=== PATIENT | male | born 1940 | race Caucasian/White ===

== ENCOUNTER → 2018-01-28 02:46 | Outpatient (CLI) | payer MEDICARE, MEDICAID, SELFPAY ==
[2018-01-28 11:33] LABS: INR 1.8 (1.0-3.5); Prothrombin Time 16.8 sec (9.3-10.8)
== END ==
PROVIDERS: PCP Emergency Medicine; Visit Provider Emergency Medicine
DX: I80.9 Phlebitis and thrombophlebitis of unspecified site (principal); Z79.01 Long term (current) use of anticoagulants
CPT/HCPCS: 36415; 85610

== ENCOUNTER → 2018-02-04 01:47 | Outpatient (CLI) | payer MEDICARE, MEDICAID, SELFPAY ==
[2018-02-04 12:01] LABS: Prothrombin Time 24.1 sec (9.3-10.8)
[2018-02-04 12:27] LABS: INR 2.5 (1.0-3.5)
== END ==
PROVIDERS: PCP Emergency Medicine; Visit Provider Emergency Medicine
DX: I80.9 Phlebitis and thrombophlebitis of unspecified site (principal); Z79.01 Long term (current) use of anticoagulants
CPT/HCPCS: 36415; 85610

== ENCOUNTER → 2018-02-11 02:24 | Outpatient (CLI) | payer MEDICARE, MEDICAID, SELFPAY ==
[2018-02-11 11:28] LABS: INR 2.7 (1.0-3.5); Prothrombin Time 25.6 sec (9.3-10.8)
== END ==
PROVIDERS: PCP Emergency Medicine; Visit Provider Emergency Medicine
DX: I80.9 Phlebitis and thrombophlebitis of unspecified site (principal); Z79.01 Long term (current) use of anticoagulants
CPT/HCPCS: 36415; 85610

== ENCOUNTER → 2018-02-18 02:50 | Outpatient (CLI) | payer MEDICARE, MEDICAID, SELFPAY ==
[2018-02-18 11:12] LABS: INR 3.4 (1.0-3.5)
== END ==
PROVIDERS: PCP Emergency Medicine; Visit Provider Emergency Medicine
DX: I80.9 Phlebitis and thrombophlebitis of unspecified site (principal); Z79.01 Long term (current) use of anticoagulants
CPT/HCPCS: 36415; 85610

== ENCOUNTER 2018-02-26 05:43 | Outpatient (CLI) | payer MEDICARE, MEDICAID, SELFPAY ==
[2018-02-26 12:13] LABS: Prothrombin Time 45.6 sec (9.3-10.8)
[2018-02-26 12:31] LABS: INR 4.9 (1.0-3.5)
== END 2018-02-26 06:03 ==
LOC: LBO 05:47 → LOS 11:23
PROVIDERS: PCP Emergency Medicine; Visit Provider Emergency Medicine
DX: I80.9 Phlebitis and thrombophlebitis of unspecified site (principal); Z79.01 Long term (current) use of anticoagulants
CPT/HCPCS: 36415; 85610

== ENCOUNTER 2018-03-01 05:23 | Outpatient (CLI) | payer MEDICARE, MEDICAID, SELFPAY ==
[2018-03-01 11:54] LABS: INR 1.9 (1.0-3.5); Prothrombin Time 18.5 sec (9.3-10.8)
== END 2018-03-01 05:43 ==
PROVIDERS: PCP Emergency Medicine; Visit Provider Emergency Medicine
DX: I80.9 Phlebitis and thrombophlebitis of unspecified site (principal); Z79.01 Long term (current) use of anticoagulants
CPT/HCPCS: 36415; 85610

== ENCOUNTER → 2018-03-06 13:03 | Outpatient (BNVA) | payer MEDICARE, MEDICAID, SELFPAY | PROVIDERS: PCP Emergency Medicine; Visit Provider Student in an Organized Health Care Education/Training Program | DX: I35.0 Nonrheumatic aortic (valve) stenosis (principal); Z95.3 Presence of xenogenic heart valve; I25.10 Atherosclerotic heart disease of native coronary artery without angina pectoris; I48.2 Chronic atrial fibrillation; I11.0 Hypertensive heart disease with heart failure; J44.9 Chronic obstructive pulmonary disease, unspecified; I50.22 Chronic systolic (congestive) heart failure | CPT/HCPCS: 99214 ==

== ENCOUNTER 2018-03-15 01:02 | Outpatient (CLI) | payer MEDICARE, MEDICAID, SELFPAY ==
[2018-03-15 11:42] LABS: INR 2.5 (1.0-3.5); Prothrombin Time 23.5 sec (9.3-10.8)
== END 2018-03-15 01:22 ==
PROVIDERS: PCP Emergency Medicine; Visit Provider Emergency Medicine
DX: I80.9 Phlebitis and thrombophlebitis of unspecified site (principal); Z79.01 Long term (current) use of anticoagulants
CPT/HCPCS: 36415; 85610

== ENCOUNTER 2018-03-29 02:49 | Outpatient (CLI) | payer MEDICARE, MEDICAID, SELFPAY ==
[2018-03-29 11:28] LABS: INR 2.8 (1.0-3.5); Prothrombin Time 26.3 sec (9.3-10.8)
== END 2018-03-29 03:09 ==
PROVIDERS: PCP Emergency Medicine; Visit Provider Emergency Medicine
DX: I80.9 Phlebitis and thrombophlebitis of unspecified site (principal); Z79.01 Long term (current) use of anticoagulants
CPT/HCPCS: 36415; 85610

== ENCOUNTER 2018-04-29 01:49 | Outpatient (CLI) | payer MEDICARE, MEDICAID, SELFPAY ==
[2018-04-29 11:16] LABS: INR 1.7 (1.0-3.5); Prothrombin Time 16.1 sec (9.3-10.8)
== END 2018-04-29 02:09 ==
PROVIDERS: PCP Emergency Medicine; Visit Provider Emergency Medicine
DX: I80.9 Phlebitis and thrombophlebitis of unspecified site (principal); Z79.01 Long term (current) use of anticoagulants
CPT/HCPCS: 36415; 85610

== ENCOUNTER 2018-05-06 01:34 | Outpatient (CLI) | payer MEDICARE, MEDICAID, SELFPAY ==
[2018-05-06 11:38] LABS: INR 1.8 (1.0-3.5); Prothrombin Time 17.4 sec (9.3-10.8)
== END 2018-05-06 01:54 ==
PROVIDERS: PCP Emergency Medicine; Visit Provider Emergency Medicine
DX: I80.9 Phlebitis and thrombophlebitis of unspecified site (principal); Z79.01 Long term (current) use of anticoagulants
CPT/HCPCS: 36415; 85610

== ENCOUNTER 2018-05-13 01:17 | Outpatient (CLI) | payer MEDICARE, MEDICAID, SELFPAY ==
[2018-05-13 11:11] LABS: Prothrombin Time 41.7 sec (9.3-10.8)
[2018-05-13 11:41] LABS: INR 4.5 (1.0-3.5)
== END 2018-05-13 01:37 ==
PROVIDERS: PCP Emergency Medicine; Visit Provider Emergency Medicine
DX: I80.9 Phlebitis and thrombophlebitis of unspecified site (principal); Z79.01 Long term (current) use of anticoagulants
CPT/HCPCS: 36415; 85610

== ENCOUNTER 2018-05-17 01:13 | Outpatient (CLI) | payer MEDICARE, MEDICAID, SELFPAY ==
[2018-05-17 07:26] LABS: Prothrombin Time 19.1 sec (9.3-10.8)
== END 2018-05-17 01:33 ==
PROVIDERS: PCP Emergency Medicine; Visit Provider Emergency Medicine
DX: I80.9 Phlebitis and thrombophlebitis of unspecified site (principal); Z79.01 Long term (current) use of anticoagulants
CPT/HCPCS: 36415; 85610

== ENCOUNTER 2018-05-31 02:29 | Outpatient (CLI) | payer MEDICARE, MEDICAID, SELFPAY ==
[2018-05-31 12:13] LABS: INR 1.6 (1.0-3.5)
== END 2018-05-31 02:49 ==
PROVIDERS: PCP Emergency Medicine; Visit Provider Emergency Medicine
DX: I80.9 Phlebitis and thrombophlebitis of unspecified site (principal); Z79.01 Long term (current) use of anticoagulants
CPT/HCPCS: 36415; 85610

== ENCOUNTER 2018-06-14 02:10 | Outpatient (CLI) | payer MEDICARE, MEDICAID, SELFPAY ==
[2018-06-14 11:47] LABS: INR 1.6 (1.0-3.5); Prothrombin Time 15.8 sec (9.3-11.0)
== END 2018-06-14 02:30 ==
PROVIDERS: PCP Emergency Medicine; Visit Provider Emergency Medicine
DX: I80.9 Phlebitis and thrombophlebitis of unspecified site (principal); Z79.01 Long term (current) use of anticoagulants
CPT/HCPCS: 36415; 85610

== ENCOUNTER 2018-06-28 02:32 | Outpatient (CLI) | payer MEDICARE, MEDICAID, SELFPAY ==
[2018-06-28 12:16] LABS: INR 1.8 (0.9-1.1)
== END 2018-06-28 02:52 ==
PROVIDERS: PCP Emergency Medicine; Visit Provider Emergency Medicine
DX: I80.9 Phlebitis and thrombophlebitis of unspecified site (principal); Z79.01 Long term (current) use of anticoagulants
CPT/HCPCS: 36415; 85610

== ENCOUNTER 2018-07-12 01:27 | Outpatient (CLI) | payer MEDICARE, MEDICAID, SELFPAY ==
[2018-07-12 13:05] LABS: INR 1.5 (0.9-1.1); Prothrombin Time 14.7 sec (9.3-11.0)
== END 2018-07-12 01:47 ==
PROVIDERS: PCP Emergency Medicine; Visit Provider Emergency Medicine
DX: I80.9 Phlebitis and thrombophlebitis of unspecified site (principal); Z79.01 Long term (current) use of anticoagulants
CPT/HCPCS: 36415; 85610

== ENCOUNTER 2018-07-26 00:54 | Outpatient (CLI) | payer MEDICARE, MEDICAID, SELFPAY ==
[2018-07-26 11:31] LABS: INR 1.5 (0.9-1.1); Prothrombin Time 14.9 sec (9.3-11.0)
== END 2018-07-26 01:14 ==
PROVIDERS: PCP Emergency Medicine; Visit Provider Emergency Medicine
DX: I80.9 Phlebitis and thrombophlebitis of unspecified site (principal); Z79.01 Long term (current) use of anticoagulants
CPT/HCPCS: 36415; 85610

== ENCOUNTER 2018-08-09 03:07 | Outpatient (CLI) | payer MEDICARE, MEDICAID, SELFPAY ==
[2018-08-09 11:23] LABS: INR 1.3 (0.9-1.1); Prothrombin Time 12.7 sec (9.3-11.0)
== END 2018-08-09 03:27 ==
PROVIDERS: PCP Emergency Medicine; Visit Provider Emergency Medicine
DX: I80.9 Phlebitis and thrombophlebitis of unspecified site (principal); Z79.01 Long term (current) use of anticoagulants
CPT/HCPCS: 36415; 85610

== ENCOUNTER 2018-08-23 01:38 | Outpatient (CLI) | payer OTHER, MEDICAID, SELFPAY ==
[2018-08-23 11:24] LABS: INR 1.5 (0.9-1.1); Prothrombin Time 15.2 sec (9.3-11.0)
== END 2018-08-23 01:58 ==
PROVIDERS: PCP Emergency Medicine; Visit Provider Emergency Medicine
DX: I80.9 Phlebitis and thrombophlebitis of unspecified site (principal); Z79.01 Long term (current) use of anticoagulants
CPT/HCPCS: 36415; 85610

== ENCOUNTER 2018-08-30 09:01 | Outpatient (CLI) | payer OTHER, MEDICAID, SELFPAY ==
[2018-08-30 12:23] LABS: Prothrombin Time 20.6 sec (9.3-11.0)
[2018-08-30 12:25] LABS: Anion Gap 7.6 mmol/L (3-11); BUN 13 mg/dL (7-18); CO2 32.4 mmol/L (21.0-32.0); CREATININE 0.83 mg/dL (0.70-1.30); Calcium 8.9 mg/dL (8.5-10.1); Chloride 101 mmol/L (98-107); Glucose 100 mg/dL (70-100); NT-proBNP 428 pg/mL; Potassium 4.2 mmol/L (3.5-5.1); Sodium 141 mmol/L (136-145); TSH 8.43 uIU/mL (0.358-3.74)
== END 2018-08-30 09:21 ==
PROVIDERS: PCP Emergency Medicine; Visit Provider Emergency Medicine
DX: I80.9 Phlebitis and thrombophlebitis of unspecified site (principal); Z79.01 Long term (current) use of anticoagulants; I48.91 Unspecified atrial fibrillation; I50.9 Heart failure, unspecified; E03.9 Hypothyroidism, unspecified; I10 Essential (primary) hypertension
CPT/HCPCS: 36415; 80048; 83880; 84443; 85610

== ENCOUNTER 2019-03-05 08:36 | Outpatient (CLI) | payer OTHER, MEDICAID, SELFPAY ==
[2019-03-05 11:03] LABS: Anion Gap 11.2 mmol/L (3-11); BUN 6 mg/dL (7-18); CO2 25.8 mmol/L (21.0-32.0); CREATININE 0.87 mg/dL (0.70-1.30); Calcium 9.1 mg/dL (8.5-10.1); Calculated LDL 41 mg/dL; Chloride 103 mmol/L (98-107); Cholesterol 125 mg/dL (50-200); Glucose 101 mg/dL (70-100); HDL Cholesterol 77 mg/dL (40-60); Potassium 3.8 mmol/L (3.5-5.1); Sodium 140 mmol/L (136-145); TSH 2.34 uIU/mL (0.36-3.74); Triglyceride 39 mg/dL (30-150)
== END 2019-03-05 08:56 ==
PROVIDERS: PCP Emergency Medicine; Visit Provider Emergency Medicine
DX: E03.9 Hypothyroidism, unspecified (principal); I10 Essential (primary) hypertension
CPT/HCPCS: 36415; 80048; 80061; 84443